=== PATIENT | male | born 1945 | race Caucasian/White ===

== ENCOUNTER 2021-05-08 08:15 | Inpatient (IN) | payer OTHER ==
[2021-05-08] MEDS ORDERED: LEVALBUTEROL 1.25 MG/3 ML NEB ONE (08:45)
[2021-05-08] MEDS ORDERED: METHYLPREDNISOLONE 125 MG INJ ONE (08:45)
[2021-05-08 08:53] LABS: Protime INR 0.88
[2021-05-08 08:58] LABS: Absolute Lymphocytes (CBC) 4.8 K/uL (0.7-4.9); Basophils % 1.1 % (0-1.3); Hematocrit 51.2 % (39.6-49.0); RBC Red Blood Cell Count 5.62 M/uL (4.33-5.43)
[2021-05-08 09:08] LABS: Albumin 3.9 g/dL (3.4-5.0); Bilirubin Direct 0.2 mg/dL (0-0.2); Bilirubin Total 0.7 mg/dL (0.2-1.0); Magnesium 2.6 mg/dL (1.8-2.4); Potassium 3.2 mmol/L (3.5-5.1); Protein, Total 8.5 g/dL (6.4-8.2); Troponin (Emerg Dept Use Only) 0.1 ng/mL (0.0-0.045)
--- NOTE | 2021-05-08 09:17 | RAD REPORT ---
EXAM DESCRIPTION: RAD - Chest Single View - 05/08/2021 8:54 am CLINICAL HISTORY: DYSPNEA COMPARISON: None TECHNIQUE: AP portable chest image was obtained 05/08/2021 8:54 am . FINDINGS: No peripheral mass or consolidation. Diffusely prominent interstitial markings are noted m ost prominent in each perihilar region. Heart size is normal range for portable imaging. Vasculature is mildly prominent. No measurable pleural effusion and no pneumothorax. No acute bony abnormality seen. No acute aortic findings suspected. IMPRESSION: Interstitial pulmonary edema pattern is present. Heart size is normal. This could be car diogenic or noncardiogenic in origin. No peripheral consolidation to suspect bacterial pneumonia.
--- NOTE | 2021-05-08 09:54 | ER ---
Nurse's Notes [facility] Name: Scottie Langford Age: 75 yrs Sex: Male : 1945 Arrival Date: 05/08/2021 Time: 08:17 Bed 2 Private MD: Diagnosis: Subsequent non-ST elevation (NSTEMI) myocardial infarction Presentation: 05/08 08:27 Chief complaint: EMS states: EMS reports SOB that began yesterday. Recent immunizations ch5 to COVID, FLU, and a third. On arrival pt. was 70% O2. 08:27 Coronavirus screen: Vaccine status: Patient reports receiving the 2nd dose of the covid ch5 vaccine. Had booster shot 3 days ago. 05/05/2021. Client denies travel out of the [place] in the last 14 days. Ebola Screen: Patient negative for fever greater than or equal to 101.5 degrees Fahrenheit, and additional compatible Ebola Virus Disease symptoms Patient denies exposure to infectious person. Patient denies travel to an Ebola-affected area in the 21 days before illness onset. Initial Sepsis Screen: Does the patient meet any 2 criteria? RR > 20 per min. HR > 90 bpm. Does the patient have a suspected source of infection? No. Patient's initial sepsis screen is negative. Risk Assessment: Do you want to hurt yourself or someone else? Patient reports no desire to harm self or others. Onset of symptoms was May 07, 2021. Care prior to arrival: Non-rebreather. Activity prior to arrival: None. 08:27 Method Of Arrival: EMS: [facility] 08:27 Acuity: MANNY 2 ch5 Triage Assessment: 08:27 General: Appears distressed, Behavior is cooperative, anxious. Respiratory: Reports ch5 shortness of breath at rest labored breathing Onset: The symptoms/episode began/occurred yesterday, the patient has severe shortness of breath. 14:34 Pain: Denies pain. jt3 Historical: - Allergies: 09:42 No Known Allergies; iw - Home Meds: :42 aspirin 81 mg Oral tab daily [Active]; atorvastatin 80 mg oral tab 1 tab once daily iw [Active]; carvedilol 25 mg oral tab daily [Active]; empagliflozin 25 mg oral tab 1 tab once daily [Active]; glipizide 10 mg Oral tab 1 tab 2 times per day [Active]; - PMHx: 09:42 Hypertensive disorder; Diabetes mellitus; iw - Immunization history:: Adult Immunizations unknown, Client reports receiving the 2nd dose of the Covid vaccine. - Social history:: Smoking status: Patient reports the use of cigarette tobacco products, smokes two packs cigarettes per day. Screenin:38 Abuse screen: Denies threats or abuse. Denies injuries from another. Nutritional 5 screening: No deficits noted. Tuberculosis screening: No symptoms or risk factors identified. Fall Risk None identified. Assessment: 08:38 Reassessment: No changes from previously documented assessment. Cardiovascular: Rhythm ch5 is sinus tachycardia. 14:33 Respiratory: Airway is patent. jt3 14:33 Respiratory: Breath sounds are diminished bilaterally. jt3 14:34 Respiratory: Respiratory effort is unlabored. jt3 Vital Signs: 08:27 BP 192 / 127; Pulse 108; Resp 32; Temp 96; Pulse Ox 100% on BiPAP; Weight 72.57 kg; ch5 Height 5 ft. 7 in. (170.18 cm); 09:09 BP 176 / 92; Pulse 78; Resp 24 S; Pulse Ox 97% on BiPAP; iw 10:00 BP 186 / 89; Pulse 77; Resp 20; Pulse Ox 98% ; jt3 11:00 BP 163 / 116; Pulse 79; Resp 20; Pulse Ox 96% on R/A; jt3 11:50 BP 164 / 115; Pulse 75; Resp 24; Pulse Ox 96% ; jt3 14:41 BP 163 / 91; Pulse 97; Resp 19; Pulse Ox 98% on R/A; jt3 08:27 Body Mass Index 25.06 (72.57 kg, 170.18 cm) 5 ED Course: 08:17 Patient arrived in ED. iw 08:25 Inserted saline lock: 22 gauge in right antecubital area, using aseptic technique. mt Blood collected. 08:25 Inserted saline lock: 20 gauge in left antecubital area, using aseptic technique. Blood mt collected. by LUZ Montez. 08:27 Shmuel Wilson PA is PHCP. cp 08:27 Shmuel Gonzalez MD is Attending Physician. cp 08:27 Rocky Mohamud RN is Primary Nurse. 5 08:27 Arm band placed on right wrist. 5 08:35 Triage completed. 5 08:38 No provider procedures requiring assistance completed. 5 08:38 Patient has correct armband on for positive identification. Bed in low position. Call 5 light in reach. Side rails up X2. 08:54 XRAY Chest (1 view) In Process Unspecified. EDMS 09:53 Chas Bahena is Hospitalizing Provider. cp Administered Medications: 08:30 CANCELLED (Physician Discretion): NS 0.9% (30 ml/kg) 30 ml/kg IV at bolus once; Sepsis cp Protocol 08:30 Drug: SOLU-Medrol (methylPrednisoLONE) 125 mg Route: IVP; Site: left antecubital; 5 08:30 Drug: Xopenex (levalbuterol) (3) 1.25 mg Route: Inhalation; 5 09:39 CANCELLED (Physician Discretion): Lasix (furosemide) 40 mg IVP once; give over 2 minutescp 10:01 Drug: Aspirin Chewable Tablet 324 mg Route: PO; jt3 10:01 Drug: PlaVIX (clopidogrel) 300 mg Route: PO; jt3 10:01 Drug: Lasix (furosemide) 20 mg Route: IVP; Site: right antecubital; jt3 10:02 Drug: Zithromax (azithromycin) 500 mg Route: IVPB; Infused Over: 1 hrs; Site: left jt3 antecubital; 10:02 Drug: Rocephin (cefTRIAXone) 1 grams Route: IV; Rate: calculated rate; Site: left jt3 antecubital; 10:18 Drug: Lovenox (enoxaparin) 1 mg/kg Route: Sub-Q; Site: left upper arm; jt3 Output: 11:09 Urine: 200ml (Voided); Total: 200ml. jt3 Outcome: 09:53 Decision to Hospitalize by Provider. cp 14:32 Admitted to Med/surg accompanied by tech, via stretcher, room 424, Report called to jt3 LUZ Benítez 14:33 Condition: stable jt3 14:33 Instructed on the need for admit. 15:04 Patient left the ED. [facility] Signatures: Dispatcher [employer] EDRI Isha Branch RN RN iw Page, Corey, PA PA cp Thompson, [place] Rocky Mohamud RN RN [facility] Tc Holder RN RN jt3
--- NOTE | 2021-05-08 09:54 | EDPHYS ---
Physician Documentation [facility] Name: Scottie Langford Age: 75 yrs Sex: Male : 1945 Arrival Date: 05/08/2021 Time: 08:17 Bed 2 Private MD: ED Physician Shmuel Gonzalez HPI: 05/08 08:20 This 75 yrs old Male presents to ER via EMS with complaints of Breathing cp Difficulty. 08:20 The patient has shortness of breath at rest. Onset: The symptoms/episode began/occurred cp yesterday. Duration: The symptoms are continuous, and are steadily getting worse. The patient's shortness of breath is aggravated by exertion, supine position, talking, is alleviated by nothing. Associated signs and symptoms: Pertinent positives: diaphoresis, Pertinent negatives: chest pain, fever, vomiting. Severity of symptoms: in the emergency department the symptoms are unchanged despite EMS interventions. Historical: - Allergies: 09:42 No Known Allergies; iw - Home Meds: 09:42 aspirin 81 mg Oral tab daily [Active]; atorvastatin 80 mg oral tab 1 tab once daily iw [Active]; carvedilol 25 mg oral tab daily [Active]; empagliflozin 25 mg oral tab 1 tab once daily [Active]; glipizide 10 mg Oral tab 1 tab 2 times per day [Active]; - PMHx: 09:42 Hypertensive disorder; Diabetes mellitus; iw - Immunization history:: Adult Immunizations unknown, Client reports receiving the 2nd dose of the Covid vaccine. - Social history:: Smoking status: Patient reports the use of cigarette tobacco products, smokes two packs cigarettes per day. ROS: 08:25 Constitutional: Negative for body aches, chills, fever, poor PO intake. cp 08:25 Eyes: Negative for injury, pain, redness, and discharge. cp 08:25 ENT: Negative for ear pain, sore throat, difficulty swallowing, difficulty handling secretions. 08:25 Cardiovascular: Negative for chest pain, edema. 08:25 Respiratory: Positive for shortness of breath, at rest. Negative for cough. 08:25 Abdomen/GI: Negative for abdominal pain, vomiting, diarrhea, constipation. 08:25 Back: Negative for radiated pain. 08:25 Neuro: Negative for altered mental status, headache, syncope, weakness. 08:25 All other systems are negative. Exam: 08:30 Constitutional: The patient appears alert, awake, non-toxic, well developed, well cp nourished, diaphoretic, in obvious distress, moderately distressed. 08:30 Head/Face: Normocephalic, atraumatic. cp 08:30 Eyes: Periorbital structures: appear normal, Pupils: equal, round, and reactive to light and accomodation, Extraocular movements: intact throughout, Conjunctiva: normal, no exudate, no injection, Sclera: no appreciated abnormality, Lids and lashes: appear normal, bilaterally. 08:30 ENT: External ear(s): are unremarkable, Nose: is normal, Mouth: Lips: moist, Oral mucosa: moist, Posterior pharynx: Airway: no evidence of obstruction, patent. 08:30 Neck: ROM/movement: is normal, is supple, without pain, no range of motions limitations. 08:30 Chest/axilla: Inspection: normal, Palpation: is normal, no crepitus, no tenderness. 08:30 Cardiovascular: Rate: tachycardic, Rhythm: regular, Edema: is not appreciated, JVD: is not appreciated. 08:30 Respiratory: moderate respiratory distress is noted, Respirations: labored breathing, that is moderate, intercostal retractions, that is moderate, Breath sounds: decreased breath sounds, that are moderate, throughout, stridor, is not appreciated, wheezing: that is mild, is heard diffusely. 08:30 Abdomen/GI: Inspection: abdomen appears normal, Palpation: abdomen is soft and non-tender, in all quadrants, rebound tenderness, is not appreciated, involuntary guarding, is not appreciated. 08:30 Back: pain, is absent, ROM is normal. 08:30 Neuro: Orientation: to person, place \T\ time. Mentation: is normal, Motor: moves all fours, strength is normal, Sensation: is normal. 09:00 ECG was reviewed by the Attending Physician. cp Vital Signs: 08:27 BP 192 / 127; Pulse 108; Resp 32; Temp 96; Pulse Ox 100% on BiPAP; Weight 72.57 kg; ch5 Height 5 ft. 7 in. (170.18 cm); 09:09 BP 176 / 92; Pulse 78; Resp 24 S; Pulse Ox 97% on BiPAP; iw 10:00 BP 186 / 89; Pulse 77; Resp 20; Pulse Ox 98% ; jt3 11:00 BP 163 / 116; Pulse 79; Resp 20; Pulse Ox 96% on R/A; jt3 11:50 BP 164 / 115; Pulse 75; Resp 24; Pulse Ox 96% ; jt3 14:41 BP 163 / 91; Pulse 97; Resp 19; Pulse Ox 98% on R/A; jt3 08:27 Body Mass Index 25.06 (72.57 kg, 170.18 cm) ch5 MDM: 08:31 Patient medically screened. cp 09:33 Physician consultation: Chas Bahena was called at 09:34, was contacted at 09:34, cp regarding admission, to the telemetry unit. patient's condition. 09:35 Data reviewed: vital signs, nurses notes, lab test result(s), EKG, radiologic studies, cp plain films. :35 Test interpretation: by ED physician or midlevel provider: ECG, plain radiologic cp studies. Counseling: I had a detailed discussion with the patient and/or guardian regarding: the historical points, exam findings, and any diagnostic results supporting the discharge/admit diagnosis, the presence of at least one elevated blood pressure reading (>120/80) during this emergency department visit, lab results, radiology results, the need for further work-up and treatment in the hospital. 05/08 08:17 Order name: Basic Metabolic Panel; Complete Time: 09:25 iw 05/08 09:25 Interpretation: Normal except: NA 134; K 3.2; GLUC 290; BUN 22; CRE 1.99; GFR 33. cp 05/08 08:17 Order name: CBC with Diff iw 05/08 08:17 Order name: LFT's; Complete Time: 09:25 iw 05/08 08:17 Order name: Magnesium; Complete Time: 09:25 iw 05/08 08:17 Order name: NT PRO-BNP; Complete Time: 09:25 iw 05/08 08:17 Order name: PT-INR; Complete Time: 09:25 iw 05/08 08:17 Order name: Troponin (emerg Dept Use Only); Complete Time: 09:25 iw 05/08 08:25 Order name: Blood Culture Adult (2) iw 05/08 08:25 Order name: CPK iw 05/08 08:25 Order name: Ckmb iw 05/08 08:25 Order name: Lactate; Complete Time: 09:25 iw 05/08 08:25 Order name: Lipase iw 05/08 08:25 Order name: Procalcitonin iw 05/08 08:17 Order name: XRAY Chest (1 view); Complete Time: 09:25 iw 05/08 08:25 Order name: Ptt, Activated iw 05/08 08:25 Order name: Urine Microscopic Only iw 05/08 09:09 Order name: Manual Differential EDMS 05/08 13:26 Order name: COVID-19/FLU A+B EDMS 05/08 08:17 Order name: EKG; Complete Time: 08:18 iw 05/08 08:17 Order name: Cardiac monitoring; Complete Time: 08: iw 05/08 08:17 Order name: EKG - Nurse/Tech; Complete Time: 09:03 iw 05/08 08:17 Order name: IV Saline Lock; Complete Time: 08:26 iw 05/08 08:17 Order name: Labs collected and sent; Complete Time: 08: iw 05/08 08:17 Order name: O2 Per Protocol; Complete Time: 08: iw 05/08 08:17 Order name: O2 Sat Monitoring; Complete Time: 08: iw 05/08 08:25 Order name: Accucheck; Complete Time: 08:41 iw 05/08 08:25 Order name: IV Saline Lock - Large Bore; Complete Time: 08:42 iw EC:00 Rate is 84 beats/min. Rhythm is regular. VT interval is normal. QRS interval is normal. cp QT interval is normal. T waves are Inverted in leads aVL, aVR. Interpreted by me. Reviewed by me. Administered Medications: 08:30 CANCELLED (Physician Discretion): NS 0.9% (30 ml/kg) 30 ml/kg IV at bolus once; Sepsis cp Protocol 08:30 Drug: SOLU-Medrol (methylPrednisoLONE) 125 mg Route: IVP; Site: left antecubital; ch5 08:30 Drug: Xopenex (levalbuterol) (3) 1.25 mg Route: Inhalation; ch5 09:39 CANCELLED (Physician Discretion): Lasix (furosemide) 40 mg IVP once; give over 2 minutescp 10:01 Drug: Aspirin Chewable Tablet 324 mg Route: PO; jt3 10:01 Drug: PlaVIX (clopidogrel) 300 mg Route: PO; jt3 10:01 Drug: Lasix (furosemide) 20 mg Route: IVP; Site: right antecubital; jt3 10:02 Drug: Zithromax (azithromycin) 500 mg Route: IVPB; Infused Over: 1 hrs; Site: left jt3 antecubital; 10:02 Drug: Rocephin (cefTRIAXone) 1 grams Route: IV; Rate: calculated rate; Site: left jt3 antecubital; 10:18 Drug: Lovenox (enoxaparin) 1 mg/kg Route: Sub-Q; Site: left upper arm; jt3 Disposition Summary: 05/08/21 09:53 Hospitalization Ordered Hospitalization Status: Inpatient Admission cp Provider: Chas Bahena cp Location: Telemetry/MedSurg (Inpatient) cp Condition: Serious cp Problem: new cp Symptoms: have improved cp Bed/Room Type: Standard cp Room Assignment: 424(05/08/21 13:55) eb Diagnosis - Subsequent non-ST elevation (NSTEMI) myocardial infarction cp Forms: - Medication Reconciliation Form cp - SBAR form cp Addendum: 05/11/2021 10:23 Co-signature as Attending Physician, Shmuel Gonzalez MD I agree with the assessment and c tirado plan of care. Signatures: Dispatcher [employer] EDShmuel Gann MD MD cha Williams, Irene RN RN iw Shmuel Wilson PA PA cp [place] Mcfadden Christopher, RN RN ch5 Tc Holder RN RN jt3 Corrections: (The following items were deleted from the chart) 05/08 08:28 08:25 Amylase ordered. EDMS EDMS 08:30 08:25 NS 0.9% (30 ml/kg) 30 ml/kg IV at bolus once; Sepsis Protocol ordered. iw cp 09:39 08:30 CORONAVIRUS+MR.LAB.BRZ ordered. EDMS EDMS 09:39 09:27 Lasix (furosemide) 40 mg IVP once; give over 2 minutes ordered. cp 09:40 08:30 Influenza Screen (A \T\ B)+BA.LAB.BRZ ordered. EDMS EDMS 13:55 09:53 cp eb
[2021-05-08] MEDS ORDERED: CEFTRIAXONE 1000 MG/VIAL ONE (10:07)
[2021-05-08] MEDS ORDERED: AZITHROMYCIN 500 MG INJ IVPB ONE (10:07)
[2021-05-08] MEDS ORDERED: CLOPIDOGREL 75 MG TABLET ONE ×2 (10:07→10:21)
[2021-05-08] MEDS ORDERED: ASPIRIN 81 MG CHEWABLE TABLET ONE (10:07)
[2021-05-08] MEDS ORDERED: FUROSEMIDE 20 MG/ 2ML VIAL ONE (10:07)
[2021-05-08] MEDS ORDERED: NA CHLORIDE 0.9% 250 ML ONE (10:08)
[2021-05-08 10:26] LABS: Blood Morphology Comment NOT SEEN (NOT SEEN); Platelet Estimate ADEQ
[2021-05-08] MEDS ORDERED: ENOXAPARIN 80 MG/0.8 ML SQ ONE ×2 (10:29→10:45)
--- NOTE | 2021-05-08 10:46 | P.HP ---
Certification for Inpatient Patient admitted to: Inpatient With expected LOS: >2 Midnights Practitioner: I am a practitioner with admitting privileges, knowledge of patient current condition, hospital course, and medical plan of care. Services: Services provided to patient in accordance with Admission requirements found in Title 42 Section 412.3 of the Code of Federal Regulations Patient History Date of Service: 05/08/21 Reason for admission: Shortness of breath History of Present Illness: 75-year-old gentleman with a history of hypertension, diabetes, coronary artery disease status post multiple stents presented to the emergency department with a complaint of progressive shortness of over the past few days. He stated also dose of breath became much worse last night and could not sleep. He endorsed orthopnea and wheezing. He denies any chest pain. Patient was in respiratory distress and his oxygen saturation was 70% on room air on arrival. He was placed on BiPAP. Chest x-ray demonstrated interstitial pulmonary edema. Initial troponin mildly elevated. His systolic blood pressure was also 193 on arrival. Patient was given a dose of IV Lasix, IV methylprednisolone and xopenex inhaler with significant improvement. He was off BiPAP and tolerating room air during my examination in the ED. CBC shows significant leukocytosis, WBC 24,000. Creatinine elevated to 1.99, baseline is unknown. He denies history of COPD. Patient hospitalized for further management. - Past Medical/Surgical History -: Hypertension -: DM type 2 -: Coronary artery disease -: BPH -: Cardiac catheterization x2 - Family History Father -: Heart disease Mother -: Cancer (Leukemia) - Social History Smoking Status: Current every day smoker (2 packs a day) Alcohol use: No CD- Drugs: No Place of Residence: Home Review of Systems Other: Patient denied any fever. He reports nonproductive cough. She denies any abdominal pain, he denies any dysuria or urinary frequency. Except as documented, all other systems reviewed and negative. Physical Examination - Physical Exam General: Alert, In no apparent distress, Oriented x3 HEENT: Atraumatic, Normocephalic, Mucous membr. moist/pink, EOMI, Sclerae nonicteric Neck: Supple, JVD not distended Respiratory: Normal air movement, Crackles/rales (Bibasilar) Cardiovascular: No edema, Regular rate/rhythm, Normal S1 S2 Capillary refill: <2 Seconds Gastrointestinal: Normal bowel sounds, Soft and benign, Non-distended, No tenderness Musculoskeletal: No swelling Integumentary: No rashes, No erythema, No cyanosis Neurological: Normal speech, Normal strength at 5/5 x4 extr, Cranial nerves 3-12 intact Lymphatics: No axilla or inguinal lymphadenopathy - Studies Laboratory Data (last 24 hrs) 05/08/21 08:25: Amylase Cancelled 05/08/21 08:25: PT 10.1, INR 0.88 05/08/21 08:25: WBC 24.10 H*, Hgb 17.3, Hct 51.2 H, Plt Count 280 05/08/21 08:25: Sodium 134 L, Potassium 3.2 L, BUN 22 H, Creatinine 1.99 H, Glucose 290 H, Magnesium 2.6 H, Total Bilirubin 0.7, AST 40 H, ALT 49, Alkaline Phosphatase 162 H Assessment and Plan - Problems (Diagnosis) (1) Acute CHF Current Visit: Yes Status: Acute (2) Malignant hypertension Current Visit: Yes Status: Acute (3) Leukocytosis Current Visit: Yes Status: Acute (4) Coronary artery disease Current Visit: Yes Status: Acute (5) Elevated troponin Current Visit: Yes Status: Acute (6) Diabetes mellitus type 2 in nonobese Current Visit: Yes Status: Acute (7) Renal insufficiency Current Visit: Yes Status: Acute - Plan Admit patient to the medical floor. Patient given a dose of full-dose Lovenox for elevated troponin. EKG with no ischemic changes. IV Lasix Obtain echocardiogram Trend troponin Cardiology Consult Bronchodilators Patient has no fever. Leukocytosis likely stress induced. Patient quickly improved with IV Lasix and steroid. No pneumonia, no sepsis. Monitor and optimize electrolytes Monitor CBCs to follow leukocytosis. Patient fully vaccinated against COVID. He also got his Pfizer booster dose and flu shot a few days ago. COVID 19 test is negative. Patient with unknown baseline creatinine. Monitor renal function. Renal consult if creatinine did not improve with treatment. - Advance Directives Does patient have a Living Will: No Does patient have a Durable POA for Healthcare: No
[2021-05-08] MEDS: POTASSIUM CL SA 10 MEQ TAB PO SCH ×4 (11:00→20:20)
[2021-05-08 13:09] LABS: CKMB Creatine Kinase MB 2.4 ng/mL (1.0-3.6)
[2021-05-08 13:25] LABS: SARS-COV-2 RT PCR NEGATIVE (NEGATIVE)
[2021-05-08 15:01] VITALS: BMI 25.0
[2021-05-08] MEDS: IPRATROPIUM BROM 0.5MG/2.5ML NEB SCH ×4 (15:05→23:15)
[2021-05-08] MEDS ORDERED: HYDRALAZINE HCL 20 MG/ML VIAL IV PRN (15:05)
[2021-05-08] MEDS: ALBUTEROL 2.5 MG/3 ML NEB SOL NEB SCH ×2 (15:05→19:15)
[2021-05-08] MEDS: AMLODIPINE 10 MG TAB PO SCH (15:59)
[2021-05-08] MEDS: FUROSEMIDE 40 MG/4 ML VIAL IV SCH (16:01)
[2021-05-08] MEDS: INSULIN -REGULAR HUMAN 50 UNIT/0.5 ML ML SQ SCH ×4 (16:04→20:19)
[2021-05-08] MEDS ORDERED: PNEUMOCOCCAL VACCINE 0.5 ML IMVAC ONE (17:00)
--- NOTE | 2021-05-08 17:09 | P.CNS ---
Date of Consult: 05/08/21 Reason for Consult: ANNETTE/ CKD Requesting Physician: shauna marroquin Chief Complaint: Shortness of breath History of Present Illness: 75 yo WM HTN, DM presented to the ER with several days of moderate, progressive dyspnea with associated hypoxia. He was diagnosed with A/C CHF. He was noted to have ARF in the setting of 2-3 daily Aleve for the past month for pain behind his left eye. He reports incomplete emptying of his bladder with having to urinate 5min after his initial urination. He recently received his vaccine booster. IA blood work April 29, 2021: Na 134; K 3.1; BUN 15; Cr 1.65; A1C 8.1; UA with proteinuria 75-year-old gentleman with a history of hypertension, diabetes, coronary artery disease status post multiple stents presented to the emergency department with a complaint of progressive shortness of over the past few days. He stated also dose of breath became much worse last night and could not sleep. He endorsed orthopnea and wheezing. He denies any chest pain. Patient was in respiratory distress and his oxygen saturation was 70% on room air on arrival. He was placed on BiPAP. Chest x-ray demonstrated interstitial pulmonary edema. Initial troponin mildly elevated. His systolic blood pressure was also 193 on arrival. Patient was given a dose of IV Lasix, IV methylprednisolone and xopenex inhaler with significant improvement. He was off BiPAP and tolerating room air during my examination in the ED. CBC shows significant leukocytosis, WBC 24,000. Creatinine elevated to 1.99, baseline is unknown. He denies history of COPD. Patient hospitalized for further management. Allergies No Known Allergies Allergy (Unverified 05/08/21 15:04) Home medications list reviewed: Yes Home Medications: Atorvastatin Calcium [Lipitor] 1 tab PO DAILY 05/08/21 Carvedilol [Coreg] 1 tab PO DAILY 05/08/21 glipiZIDE [Glipizide] 1 tab PO BID 05/08/21 lisinopriL [Lisinopril] 1 tab PO DAILY 05/08/21 - Past Medical/Surgical History Diabetic: Yes -: Hypertension -: DM type 2 -: Coronary artery disease -: BPH -: Cardiac catheterization x2 - Family History Father Medical History: Heart disease Mother Medical History: Cancer - Social History Alcohol use: No CD- Drugs: No Caffeine use: Yes Place of Residence: Home Review of Systems 10-point ROS is otherwise unremarkable Genitourinary: Frequency Physical Examination Temp Pulse Resp BP Pulse Ox 96.9 F 74 18 178/86 H 98 05/08/21 16:00 05/08/21 16:01 05/08/21 16:00 05/08/21 16:01 05/08/21 16:00 General: In no apparent distress, Oriented x3, Cooperative HEENT: Atraumatic Neck: Supple Respiratory: Diminished Cardiovascular: No edema, Regular rate/rhythm Gastrointestinal: Soft and benign, Non-distended Musculoskeletal: No clubbing, No contractures Integumentary: No rashes, No cyanosis Neurological: Normal speech Laboratory Data (last 24 hrs) 05/08/21 08:25: APTT Cancelled 05/08/21 08:25: Amylase Cancelled, Lipase 172 05/08/21 08:25: PT 10.1, INR 0.88 05/08/21 08:25: WBC 24.10 H*, Hgb 17.3, Hct 51.2 H, Plt Count 280 05/08/21 08:25: Sodium 134 L, Potassium 3.2 L, BUN 22 H, Creatinine 1.99 H, Glucose 290 H, Magnesium 2.6 H, Total Bilirubin 0.7, AST 40 H, ALT 49, Alkaline Phosphatase 162 H Imagings Data: EXAM DESCRIPTION: RAD - Chest Single View - 05/08/2021 8:54 am CLINICAL HISTORY: DYSPNEA COMPARISON: None TeCHNIQUE: AP portable chest image was obtained 05/08/2021 8:54 am FINDINGS: No peripheral mass or consolidation. Diffusely prominent interstitial markings are noted most prominent in each perihilar region. Heart size is normal range for portable imaging. Vasculature is mildly prominent. No measurable pleural effusion and no pneumothorax. No acute bony abnormality seen. No acute aortic findings suspected. IMPRESSION: Interstitial pulmonary edema pattern is present. Heart size is normal. This could be cardiogenic or noncardiogenic in origin. No peripheral consolidation to suspect bacterial pneumonia. Conclusions/Impression: ANNETTE in the setting of excessive Aleve Possible underlying CKD with proteinuria -No NSAIDs -Renal US Hyponatremia -Continue furosemide Hypokalemia -Replete potassium Malignant HTN -Continue Amlodipine -Restart Coreg Diastolic CHF, A/C -Continue furosemide -Restart Coreg DM II with CKD -RISS BPH with LUTS -Bladder US -Consider Flomax Thank you kindly for the consultation. Case reviewed with Dr. Marroquin.
[2021-05-08 18:50] LABS: Urine Appearance CLEAR (Clear); Urine Bilirubin NEGATIVE (Negative); Urine Blood TRACE (Negative); Urine Color YELLOW (Yellow); Urine Glucose 2+ (Negative); Urine Protein TRACE (Negative); Urine Specific Gravity <=1.005 (1.005-1.030); Urine Urobilinogen 0.2 mg/dL (0.2-1.0)
[2021-05-08 19:55] LABS: Urine Bacteria <20 /HPF (NONE SEEN); Urine RBC <5 /HPF (NONE SEEN)
--- NOTE | 2021-05-08 20:59 | CON ---
Date of Consultation: 05/08/2021 Reason For Consultation: Heart failure. History Of Present Illness: 75-year-old male with history of hypertension, diabetes, coronary artery disease, status post stents placement in the past, CHF, presented with worsening shortness of breath and orthopnea and wheezing. Denies having any cough. Upon evaluation in the emergency room, was in respiratory distress, was placed on BiPAP and then after diuresis with IV Lasix. He is speaking ful l sentences. He is feeling much better. Past Medical History: As outlined above in the HPI. Medications: Refer reconciliation sheet for detailed list. Allergies: NO KNOWN DRUG ALLERGIES. Family History: No premature coronary artery disease or cancer. Social History: Does not drink, but smokes every day. Does not use any drugs. Review of Systems: All systems reviewed and they are negative except as mentioned in the HPI. Physical Examination: Vital Signs: Reviewed. Head and Neck: Pupils are equal and reactive to light. Intact eye movements. No JVD. No cervical adenopathy. Neck is supple. Thyroid is not enlarged. Lungs: Clear to auscultation. Heart: Irregular. No extra sounds. Abdomen: Soft, nontender. Bowel sounds positive. No organomegaly. No masses or hernia. No rigidi ty or rebound. Extremities: There is no edema, clubbing, or cyanosis. Intact pulses. Skin: No rashes. Neurologic: Alert, awake, oriented x3. No conversive. Investigations: Troponins 0.1. Creatinine 1.99. Assessment And Recommendation: Elevated troponin could be due to demand ischemia. The patient is kn own to have history of coronary artery disease. We will trend troponin further. If it continues to climb, we will plan for coronary angiogram on Tuesday. No further worsening of troponin. Patient con tinues to be symptomatic, then I would recommend a nuclear stress test to further evaluate. Thank you for the consult. /LOVE Voice ID: [id number] Report ID: [id number]
[2021-05-09] MEDS ORDERED: INSULIN -REGULAR HUMAN 50 UNIT/0.5 ML ML SQ ONE
[2021-05-09] MEDS: IPRATROPIUM BROM 0.5MG/2.5ML NEB SCH ×5 (02:15→20:00)
[2021-05-09] MEDS: ALBUTEROL 2.5 MG/3 ML NEB SOL NEB SCH ×4 (02:15→20:00)
[2021-05-09 04:21] LABS: Absolute Lymphocytes (CBC) 1.3 K/uL (0.7-4.9); Basophils % 0.3 % (0-1.3); Lymphocytes % 5.9 % (15.3-44.8); MPV 9.8 fL (7.6-11.3); RBC Red Blood Cell Count 4.22 M/uL (4.33-5.43)
[2021-05-09 04:49] LABS: Albumin 2.6 g/dL (3.4-5.0); Bilirubin Total 0.6 mg/dL (0.2-1.0); Phosphorus 1.4 mg/dL (2.5-4.9); Protein, Total 6.2 g/dL (6.4-8.2)
[2021-05-09 04:50] LABS: Magnesium 2.1 mg/dL (1.8-2.4)
[2021-05-09] MEDS: carvediloL 12.5 MG TAB PO SCH ×2 (05:13→18:15)
[2021-05-09 05:16] LABS: UR PROTEIN 170.6 mg/dL (<11.9); Urine Protein/Creatinine Ratio 1.22 ratio (<0.15)
--- NOTE | 2021-05-09 05:37 | RAD REPORT ---
EXAM DESCRIPTION: US - Renal Ultrasound-Complete - 05/08/2021 10:41 pm CLINICAL HISTORY: ANNETTE Flank pain COMPARISON: <Comparisons> FINDINGS: Both kidneys are normal in size, shape and echotexture. The right kidney measures 7.6 x 3.5 x 3.2 cm. No hydronephrosis, focal mass or perinephric fluid. The left kidney measures 11.5 x 6.1 x 4.9 cm. No hydronephrosis, focal mass or perinephric fluid. The urinary bladder is incompletely distended without gross abnormality seen. IMPRESSION: Mildly asymmetric renal size as detailed, otherwise unremarkable study.
--- NOTE | 2021-05-09 05:40 | RAD REPORT ---
EXAM DESCRIPTION: US - Urinary Bladder - 05/08/2021 10:42 pm CLINICAL HISTORY: ANNETTE. BPH/ LUTS. Please check PVR. Pelvic pain COMPARISON: <Comparisons> TECHNIQUE: Real-time sonographic evaluation of the urinary bladder with pre and postvoid volume adela urements was performed. FINDINGS: The prostate gland appears prominent and projects into the bladder base. No bladder mass o r ureterocele seen. Prevoid bladder volume 125 mL. Postvoid bladder volume 2 mL. IMPRESSION: No significant PVR noted. Prominent prostrate gland projects into the bladder base.
[2021-05-09] MEDS: INSULIN -REGULAR HUMAN 50 UNIT/0.5 ML ML SQ SCH ×4 (07:30→20:17)
[2021-05-09] MEDS: AMLODIPINE 10 MG TAB PO SCH (08:06)
[2021-05-09] MEDS: CLOPIDOGREL 75 MG TABLET PO SCH (08:06)
[2021-05-09] MEDS: ASPIRIN EC 81 MG TAB PO SCH (08:06)
[2021-05-09] MEDS: ENOXAPARIN 40 MG/0.4 ML SQ SCH (08:07)
[2021-05-09] MEDS: FUROSEMIDE 40 MG/4 ML VIAL IV SCH ×2 (08:07→18:15)
[2021-05-09] MEDS: AZITHROMYCIN IV 500 MG in NA CHLORIDE 0.9% 250 ML IVPB SCH (08:07)
[2021-05-09] MEDS: CEFTRIAXONE 1 GM/NS 50 ML 1 GM/50 ML BAG IV SCH (08:07)
--- NOTE | 2021-05-09 16:38 | P.PN ---
Subjective Date of Service: 05/09/21 Chief Complaint: Shortness of breath Patient reports feeling much better today. He denies any shortness of breath. WBC is still significantly elevated. Physical Examination - Vital Signs Temperature: 96.9 F Blood Pressure: 140/75 Pulse: 72 Respirations: 18 Pulse Ox (%): 100 - Physical Exam General: Alert, In no apparent distress, Oriented x3 HEENT: Mucous membr. moist/pink Neck: JVD not distended Respiratory: Clear to auscultation bilaterally, Normal air movement Cardiovascular: No edema, Regular rate/rhythm, Normal S1 S2, No murmurs Gastrointestinal: Normal bowel sounds, Soft and benign, Non-distended, No tenderness Musculoskeletal: No swelling, No tenderness Integumentary: No rashes, No erythema Neurological: Normal speech, Normal strength at 5/5 x4 extr Assessment And Plan - Current Problems (Diagnosis) (1) Acute CHF Current Visit: Yes Status: Acute (2) Malignant hypertension Current Visit: Yes Status: Acute (3) Leukocytosis Current Visit: Yes Status: Acute (4) Coronary artery disease Current Visit: Yes Status: Acute (5) Elevated troponin Current Visit: Yes Status: Acute (6) Diabetes mellitus type 2 in nonobese Current Visit: Yes Status: Acute (7) Renal insufficiency Current Visit: Yes Status: Acute - Plan Troponin trended flat EKG with no ischemic changes. Cardiology-Dr. Zavala 's input appreciated. Patient may need stress test per cardiology recommendation. Patient appear euvolemic now. Discontinue IV Lasix Echocardiogram is pending. Bronchodilators Patient has no fever. Leukocytosis is unexplained. No pneumonia, no sepsis. Monitor and optimize electrolytes Monitor CBCs to follow leukocytosis. Continue antibiotics given severe leukocytosis. Patient fully vaccinated against COVID. He also got his Pfizer booster dose and flu shot a few days ago. COVID 19 test is negative. Serum creatinine improved slightly. Nephrology input appreciated. Monitor renal function. Blood pressure readings improved. Continue home antihypertensives. Hydralazine p.r.n. for BP spikes.
[2021-05-09 16:53] LABS: Urine Appearance CLEAR (Clear); Urine Bilirubin NEGATIVE (Negative); Urine Blood TRACE (Negative); Urine Color YELLOW (Yellow); Urine Glucose 3+ (Negative); Urine Protein 1+ (Negative); Urine Specific Gravity 1.015 (1.005-1.030); Urine pH 7.5 (5.0-7.0)
[2021-05-09] MEDS ORDERED: POTASSIUM CL SA 10 MEQ TAB PO ONE (17:30)
[2021-05-09 18:00] LABS: Urine Bacteria <20 /HPF (NONE SEEN); Urine RBC <5 /HPF (NONE SEEN)
--- NOTE | 2021-05-09 21:11 | PN ---
Date of Progress Note: 05/09/2021 Subjective: The patient states that he is feeling much better. His shortness of breath is improving . Objective: Vital signs: Showing blood pressure improving to 140s range. General: He appears in no acute distress. Neck: No JVD was noted. Lungs: Clear to auscultation. Heart: Auscultation of the heart reveals mid systolic murmur. Laboratory Data: Showing sodium of 136, potassium of 3, BUN of 24, and creatinine of 1.72. BMP resu lts are showing albumin of 2.6. CBC showing WBC count of 21,000, hemoglobin, hematocrit, and platele t count are stable. Current Medications: Including Lasix 40 mg IV b.i.d., albuterol, amlodipine 10 mg a day, carvedilol, hydralazine, and Rocephin. Impression: 1.[id number] renal insufficiency secondary to non-steroidal anti-inflammatory drugs use and co ngestive heart failure exacerbation, improving at this time. 2.Hypokalemia, replaced with potassium chloride 40 mEq x1 time dose. 3.Malignant hypertension, improving. 4.Leukocytosis, currently on Rocephin. 5.Coronary artery disease, currently stable. 6.Elevated troponin. Plan for echocardiogram and Cardiology followup. May need stress test also. Plan: Overall, the patient's renal function is doing better. Continue diuretics. Continue potassiu m supplementation and follow up closely. VV/MODL Voice ID: [id number] Report ID: [id number]
[2021-05-10] MEDS: ALBUTEROL 2.5 MG/3 ML NEB SOL NEB SCH ×4 (02:00→19:15)
[2021-05-10] MEDS: IPRATROPIUM BROM 0.5MG/2.5ML NEB SCH ×6 (04:00→19:15)
[2021-05-10] MEDS: carvediloL 12.5 MG TAB PO SCH ×2 (04:44→17:02)
[2021-05-10 05:39] LABS: Absolute Lymphocytes (CBC) 1.6 K/uL (0.7-4.9); Basophils % 0.4 % (0-1.3); Hematocrit 37.9 % (39.6-49.0); Lymphocytes % 10.8 % (15.3-44.8); MPV 9.3 fL (7.6-11.3); RBC Red Blood Cell Count 4.32 M/uL (4.33-5.43)
[2021-05-10 06:08] LABS: Potassium 2.8 mmol/L (3.5-5.1)
[2021-05-10] MEDS: CEFTRIAXONE 1 GM/NS 50 ML 1 GM/50 ML BAG IV SCH (08:20)
[2021-05-10] MEDS: AZITHROMYCIN IV 500 MG in NA CHLORIDE 0.9% 250 ML IVPB SCH (08:20)
[2021-05-10] MEDS: ENOXAPARIN 40 MG/0.4 ML SQ SCH (08:20)
[2021-05-10] MEDS: KCL 20 MEQ/100 mL IVPB 20 MEQ/100 ML BAG IV SCH ×2 (08:21→10:42)
[2021-05-10] MEDS: FUROSEMIDE 40 MG/4 ML VIAL IV SCH (08:21)
[2021-05-10] MEDS: ASPIRIN EC 81 MG TAB PO SCH (08:23)
[2021-05-10] MEDS: INSULIN -REGULAR HUMAN 50 UNIT/0.5 ML ML SQ SCH ×4 (08:23→19:29)
[2021-05-10] MEDS: CLOPIDOGREL 75 MG TABLET PO SCH (08:23)
[2021-05-10] MEDS: AMLODIPINE 10 MG TAB PO SCH (08:23)
[2021-05-10] MEDS ORDERED: carvediloL 25 MG TAB PO SCH (09:00)
[2021-05-10] MEDS: lisinopriL 5 MG TAB PO SCH (10:35)
[2021-05-10] MEDS: ATORVASTATIN 80 MG TAB PO SCH (10:36)
[2021-05-10] MEDS ORDERED: NA CHLORIDE 0.9% 250 ML ONE (12:05)
[2021-05-10] MEDS ORDERED: KCL 20 MEQ/100 mL IVPB 20 MEQ/100 ML BAG IV SCH (13:00)
--- NOTE | 2021-05-10 13:23 | P.PN ---
Subjective Date of Service: 05/10/21 Chief Complaint: Shortness of breath Patient denies any shortness of breath. WBC is trending down. He is stable without oxygen. Troponin also trended down. Physical Examination - Vital Signs Temperature: 97.4 F Blood Pressure: 165/81 Pulse: 80 Respirations: 18 Pulse Ox (%): 96 - Physical Exam General: Alert, In no apparent distress Neck: Supple Respiratory: Clear to auscultation bilaterally, Normal air movement Cardiovascular: No edema, Regular rate/rhythm, Normal S1 S2 Gastrointestinal: Normal bowel sounds, Soft and benign, Non-distended, No tenderness Musculoskeletal: No swelling Integumentary: No rashes Neurological: Normal strength at 5/5 x4 extr Assessment And Plan - Current Problems (Diagnosis) (1) Acute CHF Current Visit: Yes Status: Acute (2) Malignant hypertension Current Visit: Yes Status: Acute (3) Leukocytosis Current Visit: Yes Status: Acute (4) Coronary artery disease Current Visit: Yes Status: Acute (5) Elevated troponin Current Visit: Yes Status: Acute (6) Diabetes mellitus type 2 in nonobese Current Visit: Yes Status: Acute (7) Renal insufficiency Current Visit: Yes Status: Acute - Plan Patient seen by cardiology. He may need stress test per cardiology recommendation. Patient appear euvolemic now. IV Lasix discontinued. Serum creatinine continue to trend down. Echocardiogram is pending. Bronchodilators Patient has no fever. Leukocytosis is unexplained. No pneumonia, no sepsis. WBC is trending down. Continue empiric antibiotics. Monitor and optimize electrolytes Monitor CBCs to follow leukocytosis. Continue antibiotics given severe leukocytosis. Nephrology is following. Blood pressure control. Patient started on Coreg. Titrate Coreg. Hydralazine p.r.n. for BP spikes.
--- NOTE | 2021-05-10 16:18 | RAD REPORT ---
EXAM DESCRIPTION: RAD - Chest Single View - 05/10/2021 4:08 pm CLINICAL HISTORY: chf Chest pain. COMPARISON: Extremity Venous Uni Ltd dated 06/13/2019; Abdomen Exam Complete dated 07/25/2019Chest Sin gle View dated 05/08/2021 FINDINGS: Portable technique limits examination quality. Opacifications of the right lung base has progressed since prior study suggesting development of a ri ght base pneumonia. Interstitial prominence appears mildly improved overall since prior study. The he art is upper limit of normal in size to mildly enlarged. IMPRESSION: Infiltrate/ pneumonia appears to be developing in the right lower lobe.
[2021-05-11] MEDS: ALBUTEROL 2.5 MG/3 ML NEB SOL NEB SCH ×4 (01:35→20:00)
[2021-05-11] MEDS: IPRATROPIUM BROM 0.5MG/2.5ML NEB SCH ×6 (01:35→20:00)
[2021-05-11] MEDS: carvediloL 12.5 MG TAB PO SCH ×2 (04:56→18:21)
[2021-05-11 07:09] LABS: Absolute Lymphocytes (CBC) 1.7 K/uL (0.7-4.9); Basophils % 0.7 % (0-1.3); Hematocrit 37.6 % (39.6-49.0); Lymphocytes % 16.5 % (15.3-44.8); MPV 9.3 fL (7.6-11.3); RBC Red Blood Cell Count 4.26 M/uL (4.33-5.43)
[2021-05-11 07:10] LABS: Potassium 3.2 mmol/L (3.5-5.1)
[2021-05-11] MEDS ORDERED: REGADENOSON 0.4 MG/5 ML SYR IV ONE (07:29)
[2021-05-11] MEDS: ASPIRIN EC 81 MG TAB PO SCH (08:07)
[2021-05-11] MEDS: CLOPIDOGREL 75 MG TABLET PO SCH (08:07)
[2021-05-11] MEDS: ENOXAPARIN 40 MG/0.4 ML SQ SCH (08:07)
[2021-05-11] MEDS: AMLODIPINE 10 MG TAB PO SCH (08:07)
[2021-05-11] MEDS: ATORVASTATIN 80 MG TAB PO SCH (08:08)
[2021-05-11] MEDS: lisinopriL 5 MG TAB PO SCH (08:08)
[2021-05-11] MEDS: INSULIN -REGULAR HUMAN 50 UNIT/0.5 ML ML SQ SCH ×4 (08:15→20:13)
[2021-05-11] MEDS: AZITHROMYCIN IV 500 MG in NA CHLORIDE 0.9% 250 ML IVPB SCH (08:31)
[2021-05-11] MEDS: CEFTRIAXONE 1 GM/NS 50 ML 1 GM/50 ML BAG IV SCH (08:31)
[2021-05-11] MEDS ORDERED: POTASSIUM CL SA 10 MEQ TAB PO ONE (10:34)
--- NOTE | 2021-05-11 11:34 | RAD REPORT ---
EXAM DESCRIPTION: NM - Rest Stress Cardiac Imaging - 05/11/2021 11:13 am CLINICAL HISTORY: CHF, elevated troponin Chest pain. COMPARISON: No comparisons TECHNIQUE: The patient was administered approximately 10mCi of Tc 99m Sestamibi prior to resting SPE CT imaging of the heart. The patient was then administered approximately 30 mCi of Tc 99m Sestamibi f ollowing exercise or pharmacologic stress. Multiplanar SPECT images were reviewed. FINDINGS: There is a large area of rest and stress defects seen along the inferior wall. This may in dicate prior infarction. In the region of the left ventricular lateral wall there is a moderate decr ease in radiopharmaceutical accumulation with stress suggesting stress-induced ischemia is present. The end diastolic volume is 129 ml, the end systolic volume is 70 ml, and the ejection fraction is 46 %. IMPRESSION: Mild to moderate stress-induced ischemia suspected involving the left ventricular latera l wall. Large area of fixed defect involving the inferior wall likely represents scarring from old infarct.
--- NOTE | 2021-05-11 14:39 | TREADPHA ---
DX: CHEST PAIN Date of Study: 05/11/2021 Ht: 5' 7 " Wt: 159 lb 15.831 oz Consulting Physician: SWATHI MEDICATIONS: NORVASC, LIPITOR, COREG, PLAVIX, LOVENOX, NOVOLIN-R, APRESOLINE HISTORY: HYPERTENSION, MYOCARDIAL INFARCTION, DIABETES MELLITUS, CARDIAC STENTS X2 AND POSTIVE FAMILY HISTORY. PHYSICIAL EXAMINATION: RESTING B.P.: 121/67 RESTING H.R.: 62 RESTING EKG: NORMAL PROTOCOL: LEXSCAN EXERCISE TIME: 3:30 B.P. AT PEAK STRESS: 112/55 IMPRESSION: LEXISCAN STRESS TEST PREFORMED. CARDIOLITE INJECTED PER PROTOCOL. SEE NUCLEAR MEDICINE REPORT. NO SUPRAVENTRICULAR OR VENTRICULAR TACHYCARDIA. PREMATURE VENTRICULAR COMPLEXES NOTED THROUGHOUT STUDY. NO EKG CHANGES WITH LEXISCAN.
--- NOTE | 2021-05-11 16:30 | P.PN ---
Subjective Date of Service: 05/11/21 Chief Complaint: Shortness of breath Patient denies any shortness of breath. He has no new complain. Leukocytosis resolved. He is stable without oxygen. Physical Examination - Vital Signs Temperature: 97.3 F Blood Pressure: 111/67 Pulse: 65 Respirations: 18 Pulse Ox (%): 98 - Physical Exam General: Alert, In no apparent distress, Oriented x3 HEENT: Mucous membr. moist/pink Neck: JVD not distended Respiratory: Clear to auscultation bilaterally, Normal air movement Cardiovascular: No edema, Regular rate/rhythm, Normal S1 S2 Gastrointestinal: Normal bowel sounds, Soft and benign, Non-distended, No tenderness Musculoskeletal: No swelling Integumentary: No rashes, No erythema Neurological: Normal speech, Normal strength at 5/5 x4 extr Assessment And Plan - Current Problems (Diagnosis) (1) Acute CHF Current Visit: Yes Status: Acute (2) Malignant hypertension Current Visit: Yes Status: Acute (3) Leukocytosis Current Visit: Yes Status: Acute (4) Coronary artery disease Current Visit: Yes Status: Acute (5) Elevated troponin Current Visit: Yes Status: Acute (6) Diabetes mellitus type 2 in nonobese Current Visit: Yes Status: Acute (7) Renal insufficiency Current Visit: Yes Status: Acute - Plan Patient seen by cardiology. Patient is currently euvolemic IV Lasix discontinued. Serum creatinine continue to trend down. I suspect creatinine is currently at baseline. Echocardiogram: Pending. Nuclear stress test: Lateral ventricle wall reversible ischemia. Cardiology Dr. Royal informed. Leukocytosis resolved. Patient had no fever. No pneumonia, no sepsis. Discontinue antibiotics. Monitor and optimize electrolytes Nephrology is following chronic kidney disease. Good blood pressure control. Continue Coreg, amlodipine and lisinopril. Hydralazine p.r.n. for BP spikes.
[2021-05-12] MEDS: ALBUTEROL 2.5 MG/3 ML NEB SOL NEB SCH ×3 (02:00→14:00)
[2021-05-12] MEDS: IPRATROPIUM BROM 0.5MG/2.5ML NEB SCH ×5 (04:00→16:00)
[2021-05-12 04:25] LABS: Absolute Lymphocytes (CBC) 1.8 K/uL (0.7-4.9); Basophils % 0.7 % (0-1.3); Hematocrit 36.2 % (39.6-49.0); Lymphocytes % 18.3 % (15.3-44.8); MPV 9.4 fL (7.6-11.3); RBC Red Blood Cell Count 4.09 M/uL (4.33-5.43)
[2021-05-12 04:39] LABS: Albumin 2.6 g/dL (3.4-5.0); Bilirubin Total 0.4 mg/dL (0.2-1.0); Potassium 4.1 mmol/L (3.5-5.1)
[2021-05-12] MEDS: carvediloL 12.5 MG TAB PO SCH (05:05)
[2021-05-12] MEDS: ASPIRIN EC 81 MG TAB PO SCH (07:45)
[2021-05-12] MEDS: CEFTRIAXONE 1 GM/NS 50 ML 1 GM/50 ML BAG IV SCH (07:45)
[2021-05-12] MEDS: INSULIN -REGULAR HUMAN 50 UNIT/0.5 ML ML SQ SCH ×2 (07:46→11:30)
[2021-05-12] MEDS: CLOPIDOGREL 75 MG TABLET PO SCH (07:47)
--- NOTE | 2021-05-12 08:09 | ECHO ---
HEIGHT: 5 ft 7 in WEIGHT: 159 lb 15.831 oz DATE OF STUDY: 05/11/[address]: shauna marroquin 2-DIMENSIONAL: YES M.MODE: YES DOPPLER: YES COLOR FLOW: YES TDS: NO PORTABLE: NO DEFINITY: NO BUBBLE STUDY: NO DIAGNOSIS: ACUTE CONGESTIVE HEART FAILURE CARDIAC HISTORY: CATHERIZATION: SURGERY: PROSTHETIC VALVE: PACEMAKER: MEASUREMENTS (cm) DIASTOLIC (NORMALS) SYSTOLIC (NORMALS) IVSd 1.2 (0.6-1.2) LA Diam (1.9-4.0) LVEF 55-65% LVIDd 4.8 (3.5-5.7) LVIDs 3.5 (2.0-3.5) %FS 27% LVPWd 1.2 (0.6-1.2) Ao Diam 3.4 (2.0-3.7) 2 DIMENSIONAL ASSESSMENT: RIGHT ATRIUM: NORMAL LEFT ATRIUM: NORMAL RIGHT VENTRICLE: NORMAL LEFT VENTRICLE: NORMAL TRICUSPID VALVE: MILD TRICUSPID REGURGITATION MITRAL VALVE: MODERATE MITRAL REGURGITATION PULMONIC VALVE: NORMAL AORTIC VALVE: NORMAL PERICARDIAL EFFUSION: NONE AORTIC ROOT: NORMAL LEFT VENTRICULAR WALL MOTION: NORMAL. DOPPLER/COLOR FLOW: SEE BELOW. COMMENTS: NORMAL LEFT VENTRICULAR EJECTION FRACTION 55-60%. NORMAL WALL MOTION. MODERATE MITRAL REGURGITATION WITH THICKENED MITRAL VALVE. TECHNOLOGIST: KASANDRA MONTES
[2021-05-12] MEDS: AZITHROMYCIN IV 500 MG in NA CHLORIDE 0.9% 250 ML IVPB SCH (08:52)
[2021-05-12] MEDS: ENOXAPARIN 40 MG/0.4 ML SQ SCH (08:55)
[2021-05-12] MEDS: AMLODIPINE 10 MG TAB PO SCH (09:00)
[2021-05-12] MEDS: lisinopriL 5 MG TAB PO SCH (09:00)
[2021-05-12] MEDS: ATORVASTATIN 80 MG TAB PO SCH (09:00)
[2021-05-12] MEDS ORDERED: FENTANYL CITR 100 MCG/2 ML ONE (10:51)
[2021-05-12] MEDS ORDERED: LIDOCAINE 1% 20 ML MDV ONE (10:51)
[2021-05-12] MEDS ORDERED: HEPA 1000U/500MLS 1,000 UNIT/500 ML BAG IV ONE (10:51)
[2021-05-12] MEDS ORDERED: MIDAZOLAM HCL 2 MG/2 ML INJ ONE (10:51)
[2021-05-12] MEDS ORDERED: NA CHLORIDE 0.9% 0 ML ONE (10:52)
[2021-05-12] MEDS ORDERED: ATROPINE SULF 1 MG/10 ML SYR IV ONE (10:52)
[2021-05-12] MEDS ORDERED: NA CHLORIDE 0.9% 500 ML ONE (10:55)
[2021-05-12] MEDS ORDERED: ACETYLCYST 20% 4 ML VIAL IH ONE (10:58)
--- NOTE | 2021-05-12 15:47 | OP ---
Surgeon: Rickie Royal MD Core Measures Abstractor: Mr. Kelly. The patient will remain in the hospital for 2 hours of observation and bedrest after which he can go home and I will have him see us in the office in the near future. Indication: Admitted to Dr. Bahena on 05/08/2021. Had a positive stress test on 05/11/2021, brought to the shift lab technician today for left heart catheterization, selective coronary arteriogram. Procedure In Detail: The patient was prepped and draped in the routine sterile fashion in the cath l ab. Given Versed for sedation. A 6-Pashto sheath introduced in the right common femoral artery succ essfully using the standard technique and 10 cc of Xylocaine. Angiography there was normal. Angio-S eal was used to close the case. Kadeem catheter left and right were used to do the diagnostic joey terization. He was found to have normal left main and normal LAD. He had a very large circumflex th at was codominant with proximal circumflex stent that were patent. There was a 50% ostial small ivelisse s stenosis, 50% ostial small OM stenosis. This RCA was cannulated with a JR4 and had some moderate p laquing. Again, it was codominant. Anesthesia: Total conscious sedation was 45 minutes. Complications: None. Final Diagnosis: Mild coronary artery disease. Plan: Plan is for medical therapy. Estimated Blood Loss: 5 mL. KATRINA/LOVE Voice ID: [id number] Report ID: [id number]
--- NOTE | 2021-05-12 16:09 | P.DS ---
Admission Date: 05/08/21 Discharge Date: 05/12/21 Disposition: ROUTINE DISCHARGE Discharge Condition: GOOD Reason for Admission: Shortness of breath Consultations: Nephrology - Dr. Obando Cardiology - Dr. Royal Procedures: CXR (05/10): Opacifications of the right lung base has progressed since prior study suggesting development of a right base pneumonia. Interstitial prominence appears mildly improved overall since prior study. The heart is upper limit of normal in size to mildly enlarged. IMPRESSION: Infiltrate/ pneumonia appears to be developing in the right lower lobe. Echocardiogram (05/11): Normal LVEF (55 to 60%). Normal wall motion. Moderate mitral regurgitation with thickened mitral valve. Problem list NSTEMI acute on chronic CHF exacerbation Malignant hypertension Leukocytosis, secondary to possible right lower lung pneumonia h/o Coronary artery disease s/p stent ANNETTE on CKD 3, new diagnosis Brief History of Present Illness: Patient's troponin was noted to be elevated at 0.13, and trended flat. Cardiology was consulted. Patient underwent echocardiogram, subsequent stress t est, and cardiac catheterization. Cardiology reported patient had patent coronary arteries/stent. Patient had resolution of his chest pain. He was deemed stable for discharge home. To resume prior home medications. He is noted for significant leukocytosis on admission, but did not have any fever or elevated procalcitonin. Initial CT concerning for some pulmonary edema, however follow-up chest x-ray concerning for right lower lobe opacity/pneumonia. He was empirically treated with Rocephin and azithromycin. His leukocytosis resolved, and overall he was feeling better. He is discharged home to complete a 7-day course of antibiotics for possible bacterial pneumonia. Nephrology was consulted as patient had elevated creatinine on admission. He denied any prior history of kidney disease. His creatinine remained stable throughout this process, and he is to follow-up with nephrology in the near future. Hospital Course: 75-year-old gentleman with a history of hypertension, diabetes, coronary artery disease status post multiple stents presented to the emergency department with a complaint of progressive shortness of over the past few days. He stated also dose of breath became much worse last night and could not sleep. He endorsed orthopnea and wheezing. He denies any chest pain. Patient was in respiratory distress and his oxygen saturation was 70% on room air on arrival. He was placed on BiPAP. Chest x-ray demonstrated interstitial pulmonary edema. Initial troponin mildly elevated. His systolic blood pressure was also 193 on arrival. Patient was given a dose of IV Lasix, IV methylprednisolone and xopenex inhaler with significant improvement. He was off BiPAP and tolerating room air during my examination in the ED. CBC shows significant leukocytosis, WBC 24,000. Creatinine elevated to 1.99, baseline is unknown. He denies history of COPD. Patient hospitalized for further management. Vital Signs/Physical Exam: Physical Exam General: Alert, In no apparent distress, Oriented x3 HEENT: Mucous membr. moist/pink, sclera anicteric Respiratory: Clear to auscultation bilaterally, Normal air movement Cardiovascular: No edema, Regular rate/rhythm, Normal S1 S2 Gastrointestinal: Soft, nontender, nondistended Integumentary: No rashes, No erythema Temp Pulse Resp BP Pulse Ox 97.4 F 74 18 119/64 95 05/12/21 11:44 05/12/21 11:44 05/12/21 11:44 05/12/21 11:44 05/12/21 07:44 Laboratory Data at Discharge: WBC 9.60 K/uL (4.3-10.9) 05/12/21 03:23 Hgb 12.7 g/dL (13.6-17.9) L 05/12/21 03:23 Hct 36.2 % (39.6-49.0) L 05/12/21 03:23 Plt Count 169 K/uL (152-406) 05/12/21 03:23 PT 10.1 SECONDS (9.5-12.5) 05/08/21 08:25 INR 0.88 05/08/21 08:25 APTT Cancelled 05/08/21 08:25 Sodium 139 mmol/L (136-145) 05/12/21 03:23 Potassium 4.1 mmol/L (3.5-5.1) 05/12/21 03:23 BUN 30 mg/dL (7-18) H 05/12/21 03:23 Creatinine 1.83 mg/dL (0.55-1.3) H 05/12/21 03:23 Glucose 240 mg/dL (74-106) H 05/12/21 03:23 Uric Acid 6.0 mg/dL (3.5-7.2) 05/09/21 03:24 Phosphorus 1.4 mg/dL (2.5-4.9) L 05/09/21 03:24 Magnesium 2.1 mg/dL (1.8-2.4) D 05/09/21 03:24 Total Bilirubin 0.4 mg/dL (0.2-1.0) 05/12/21 03:23 AST 31 U/L (15-37) 05/12/21 03:23 ALT 39 U/L (12-78) 05/12/21 03:23 Alkaline Phosphatase 90 U/L (45-117) 05/12/21 03:23 Troponin I 0.10 ng/mL (0.0-0.045) H 05/09/21 10:27 Triglycerides 105 mg/dL (<150) 05/09/21 03:24 Cholesterol 181 mg/dL (<200) 05/09/21 03:24 HDL Cholesterol 46 mg/dL (40-60) 05/09/21 03:24 Cholesterol/HDL Ratio 3.93 05/09/21 03:24 Amylase Cancelled 05/08/21 08:25 Lipase 172 U/L (73-393) 05/08/21 08:25 Home Medications: Aspirin [Vazalore] 81 mg PO DAILY 30 Days #30 capsule 05/12/21 Atorvastatin Calcium [Lipitor] 1 tab PO DAILY 30 Days #30 tab 05/12/21 Cefpodoxime Proxetil [Vantin] 200 mg PO BID 4 Days #8 tablet 05/12/21 carvediloL [Coreg*] 12.5 mg PO BID 30 Days #60 tab 05/12/21 glipiZIDE [Glipizide] 1 tab PO BID 30 Days #60 tab 05/12/21 lisinopriL [Lisinopril] 1 tab PO DAILY 30 Days #30 tab 05/12/21 New Medications: carvediloL [Coreg*] 12.5 mg PO BID 30 Days #60 tab glipiZIDE [Glipizide] 1 tab PO BID 30 Days #60 tab Atorvastatin Calcium [Lipitor] 1 tab PO DAILY 30 Days #30 tab lisinopriL [Lisinopril] 1 tab PO DAILY 30 Days #30 tab Cefpodoxime Proxetil [Vantin] 200 mg PO BID 4 Days #8 tablet Aspirin [Vazalore] 81 mg PO DAILY 30 Days #30 capsule Physician Discharge Instructions: Your chest pain was evaluated by EKG, troponins (cardiac enzymes), chest xray, CT scan, stress test, and cardiac cath. There was no evidence of significant coronary artery disease. Chest xray and CT scan did note a possible small pneumonia in your right lower lung yang. You were treated with antibiotics and had improvement. You are discharged home to complete a total of 1 week of an tibiotics. Follow-up with your PCP in 3-5 days. Follow-up with cardiology in 1-2 months Follow-up with nephrology in the next few weeks, to repeat your blood work and follow-up on your kidney function. You were sent 1 month supply/refills of your home medications. You are to resume your home medications, and are prescribed antibiotics. Diet: AHA Activity: Ad aria Followup: Nathan ALMENDAREZOT [Primary Care Provider] - Time spent managing pt's care (in minutes): 45
[2021-05-12 16:10] VITALS: O2SAT 97
[2021-05-12 16:17] VITALS: BP 117/64; TEMP 97.9
--- NOTE | 2021-05-12 19:49 | P.PN ---
Date of Service: 05/11/21 Vital Signs Temp Pulse Resp BP Pulse Ox 97.9 F 72 18 117/64 95 05/12/21 12:59 05/12/21 12:59 05/12/21 12:59 05/12/21 12:59 05/12/21 07:44 Microbiology Results 05/08/21 08:38 Blood - Blood Aerobic Blood Culture - Preliminary No growth in 24 hours. 05/08/21 08:38 Blood - Blood Anaerobic Blood Culture - Preliminary No growth in 24 hours. 05/08/21 08:20 Blood - Blood Aerobic Blood Culture - Preliminary No growth in 24 hours. 05/08/21 08:20 Blood - Blood Anaerobic Blood Culture - Preliminary No growth in 24 hours. Assessment/ Plan: Nephrology Progress Note Feeling better. No chest pain or dyspnea No acute events overnight Vitals, medications blood work and imaging reviewed in the chart General: In no apparent distress, Oriented x3, Cooperative HEENT: Atraumatic Neck: Supple Respiratory: Diminished Cardiovascular: No edema, Regular rate/rhythm Gastrointestinal: Soft and benign, Non-distended Musculoskeletal: No clubbing, No contractures Integumentary: No rashes, No cyanosis Neurological: Normal speech Laboratory Data (last 24 hrs) 05/08/21 08:25: APTT Cancelled 05/08/21 08:25: Amylase Cancelled, Lipase 172 05/08/21 08:25: PT 10.1, INR 0.88 05/08/21 08:25: WBC 24.10 H*, Hgb 17.3, Hct 51.2 H, Plt Count 280 05/08/21 08:25: Sodium 134 L, Potassium 3.2 L, BUN 22 H, Creatinine 1.99 H, Glucose 290 H, Magnesium 2.6 H, Total Bilirubin 0.7, AST 40 H, ALT 49, Alkaline Phosphatase 162 H Imagings Data: EXAM DESCRIPTION: RAD - Chest Single View - 05/08/2021 8:54 am CLINICAL HISTORY: DYSPNEA COMPARISON: None TeCHNIQUE: AP portable chest image was obtained 05/08/2021 8:54 am FINDINGS: No peripheral mass or consolidation. Diffusely prominent interstitial markings are noted most prominent in each perihilar region. Heart size is normal range for portable imaging. Vasculature is mildly prominent. No measurable pleural effusion and no pneumothorax. No acute bony abnormality seen. No acute aortic findings suspected. IMPRESSION: Interstitial pulmonary edema pattern is present. Heart size is normal. This could be cardiogenic or noncardiogenic in origin. No peripheral consolidation to suspect bacterial pneumonia. Conclusions/Impression: NANETTE in the setting of excessive Aleve Possible underlying CKD with proteinuria -No NSAIDs -Renal US revviewed Hyponatremia -Continue furosemide Hypokalemia -Replete potassium Malignant HTN -Continue Amlodipine -Continue Coreg Diastolic CHF, A/C -Continue furosemide -Continue Coreg DM II with CKD -RISS BPH with LUTS -Bladder US reviewed -Consider Flomax
--- NOTE | 2021-05-12 19:52 | P.PN ---
Date of Service: 05/12/21 Vital Signs Temp Pulse Resp BP Pulse Ox 97.9 F 72 18 117/64 95 05/12/21 12:59 05/12/21 12:59 05/12/21 12:59 05/12/21 12:59 05/12/21 07:44 Microbiology Results 05/08/21 08:38 Blood - Blood Aerobic Blood Culture - Preliminary No growth in 24 hours. 05/08/21 08:38 Blood - Blood Anaerobic Blood Culture - Preliminary No growth in 24 hours. 05/08/21 08:20 Blood - Blood Aerobic Blood Culture - Preliminary No growth in 24 hours. 05/08/21 08:20 Blood - Blood Anaerobic Blood Culture - Preliminary No growth in 24 hours. Assessment/ Plan: Nephrology Progress Note Feeling better. Good urine output No chest pain or dyspnea No acute events overnight Vitals, medications blood work and imaging reviewed in the chart General: In no apparent distress, Oriented x3, Cooperative HEENT: Atraumatic Neck: Supple Respiratory: Diminished Cardiovascular: No edema, Regular rate/rhythm Gastrointestinal: Soft and benign, Non-distended Musculoskeletal: No clubbing, No contractures Integumentary: No rashes, No cyanosis Neurological: Normal speech Laboratory Data (last 24 hrs) 05/08/21 08:25: APTT Cancelled 05/08/21 08:25: Amylase Cancelled, Lipase 172 05/08/21 08:25: PT 10.1, INR 0.88 05/08/21 08:25: WBC 24.10 H*, Hgb 17.3, Hct 51.2 H, Plt Count 280 05/08/21 08:25: Sodium 134 L, Potassium 3.2 L, BUN 22 H, Creatinine 1.99 H, Glucose 290 H, Magnesium 2.6 H, Total Bilirubin 0.7, AST 40 H, ALT 49, Alkaline Phosphatase 162 H Imagings Data: EXAM DESCRIPTION: RAD - Chest Single View - 05/08/2021 8:54 am CLINICAL HISTORY: DYSPNEA COMPARISON: None TeCHNIQUE: AP portable chest image was obtained 05/08/2021 8:54 am FINDINGS: No peripheral mass or consolidation. Diffusely prominent interstitial markings are noted most prominent in each perihilar region. Heart size is normal range for portable imaging. Vasculature is mildly prominent. No measurable pleural effusion and no pneumothorax. No acute bony abnormality seen. No acute aortic findings suspected. IMPRESSION: Interstitial pulmonary edema pattern is present. Heart size is normal. This could be cardiogenic or noncardiogenic in origin. No peripheral consolidation to suspect bacterial pneumonia. Conclusions/Impression: ANNETTE in the setting of excessive Aleve Possible underlying CKD with proteinuria -No NSAIDs -Renal US revviewed Hyponatremia -Continue furosemide Hypokalemia -Replete potassium prn Malignant HTN -Discontinue Amlodipine -Continue Coreg Diastolic CHF, A/C -Continue furosemide -Continue Coreg DM II with CKD -RISS BPH with LUTS -Bladder US reviewed -Consider Flomax Case reviewed with Dr. Crooks
[2021-05-13 13:30] LABS: Immunoglobulin A 328 mg/dL (70-320); Immunoglobulin G 537 mg/dL (600-1540)
[2021-05-13 13:31] LABS: Immunoglobulin M 75 mg/dL (50-300)
[2021-05-13 20:46] LABS: Albumin, (SPE) 3.2 g/dL (3.8-4.8); Alpha-1-Globulins 0.4 g/dL (0.2-0.3); Alpha-2-Globulins 0.8 g/dL (0.5-0.9); Gamma Globulins 0.6 g/dL (0.8-1.7); INTERPRETATION REPORT
--- NOTE | 2021-05-17 09:25 | PN ---
Date of Progress Note: 05/11/2021 Subjective: Mr. Langford had been seen by Dr. Zavala for chest pain. He had an echocardiogram and Erika scan done on 05/11/2021. His Lexiscan showed a large area of fixed defect along the inferior wall as well as lateral ischemia. He had an echocardiogram that was normal. The patient was set up for a h eart catheterization to be done on 05/12/2021. He does have a history of hypertension, diabetes, cor onary artery disease, and BPH. Nephrology is involved in his care. The catheterization will be done on 05/12/2021. We will see what that showed before making any further decision. KATRINA/LOVE Voice ID: [id number] Report ID: [id number]
== END 2021-05-12 17:00 | disposition home or self-care (01) | DRG 280 ==
LOC: ER 08:15 → ERHOLD 10:38 → 4TH 14:28
PROVIDERS: ADMIT Internal Medicine; ATTEND Hospitalist
PROC: 5A09357 Assistance with Respiratory Ventilation, Less than 24 Consecutive Hours, Continuous Positive Airway Pressure (ICD-10-PCS; 2021-05-08)
PROC: 4A023N7 Measurement of Cardiac Sampling and Pressure, Left Heart, Percutaneous Approach (ICD-10-PCS; principal; 2021-05-12)
PROC: B2111ZZ Fluoroscopy of Multiple Coronary Arteries using Low Osmolar Contrast (ICD-10-PCS; 2021-05-12)
DX: I21.4 Non-ST elevation (NSTEMI) myocardial infarction (principal); I50.33 Acute on chronic diastolic (congestive) heart failure; J15.9 Unspecified bacterial pneumonia; I13.0 Hypertensive heart and chronic kidney disease with heart failure and stage 1 through stage 4 chronic kidney disease, or unspecified chronic kidney disease; N17.9 Acute kidney failure, unspecified; E87.1 Hypo-osmolality and hyponatremia; N18.30 Chronic kidney disease, stage 3 unspecified; E11.22 Type 2 diabetes mellitus with diabetic chronic kidney disease; F17.210 Nicotine dependence, cigarettes, uncomplicated; I25.10 Atherosclerotic heart disease of native coronary artery without angina pectoris; E87.6 Hypokalemia; N40.1 Benign prostatic hyperplasia with lower urinary tract symptoms; T39.395A Adverse effect of other nonsteroidal anti-inflammatory drugs [NSAID], initial encounter; R77.8 Other specified abnormalities of plasma proteins; Z79.84 Long term (current) use of oral hypoglycemic drugs; Z95.5 Presence of coronary angioplasty implant and graft; Z79.899 Other long term (current) drug therapy; Z79.82 Long term (current) use of aspirin; Z20.822 Contact with and (suspected) exposure to COVID-19
CPT/HCPCS: 0240U; 36415; 71045; 76770; 76857; 78452; 80048; 80053; 80061; 80076; 81001; 82550; 82553; 82570; 82784; 82947; 83605; 83690; 83735; 83880; 84100; 84132; 84145; 84156; 84165; 84484; 84550; 85025; 85610; 86038; 86335; 87040; 93005; 93017; 93306; 93454; 94640; 94660; 96372; 99285; A9500; C1760; C1893; J0456; J0583; J0696; J1644; J1650; J1940; J2250; J2785; J2930; J3010; J3480; J7040; J7050